=== PATIENT | female | born 1950 | race Caucasian/White ===

== ENCOUNTER → 2016-12-22 | Outpatient (CLI) | payer BC | LOC: MC.RAD 12-18 11:20 | DX: Z12.31 Encounter for screening mammogram for malignant neoplasm of breast (principal) ==

== ENCOUNTER → 2018-04-19 | Outpatient (CLI) | payer BC | LOC: MC.RAD 07:40 | DX: Z12.31 Encounter for screening mammogram for malignant neoplasm of breast (principal) ==

== ENCOUNTER 2021-08-12 07:30 | Day surgery (SDC) | payer MEDICARE, BC ==
[~2021-08-12] VITALS: Ht 167.6 cm; Wt 67.0 kg
[2021-08-12] VITALS (7 sets, daily range): BP systolic 132–158; BP diastolic 75–98; PULSE 65–76; TEMP 97.6
[2021-08-12] MEDS ORDERED: MULTI VITAMINS1 TAB PO (08:16)
[2021-08-12] MEDS ORDERED: ICAPS TABLET1 EACH PO (08:17)
[2021-08-12] MEDS ORDERED: PROTONIX 40MG T40 MG PO (09:16)
--- NOTE | 2021-08-12 09:25 | NUR ---
0925 Pt returns from endo procedure via cart and RN assist to [facility]. Pt ambulates from cart to recliner with RN assist. Monitors on and alarms set. Call light within reach. Report received from BENJI García. Pt alert and oriented. Pt requests juice and muffin. Pt denies any pain or nausea. Pt's present in room. 1000 Pt taking food and drink well. No complications noted. 1055 Discharge instructions given to pt and . All questions answered to their satisfaction. Extensive questions answered regarding procedure, findings, and future plan. Handed to pt are a thank you card and discharge information. 1100 Pt transferred out of the hospital via wheelchair and this RN assist, to private vehicle driven by pt's . 1130 Post pt discharge, this RN realized that no post-op temperature was obtained.
== END 2021-08-12 11:00 | disposition home or self-care (01) ==
LOC: SDCO 07:30
DX: K21.00 Gastro-esophageal reflux disease with esophagitis, without bleeding (principal); K22.2 Esophageal obstruction; K44.9 Diaphragmatic hernia without obstruction or gangrene; K29.30 Chronic superficial gastritis without bleeding; Z79.899 Other long term (current) drug therapy
CPT/HCPCS: J7030